=== PATIENT | female | born 1980 | race Caucasian/White ===

== ENCOUNTER 2018-11-17 03:23 | Inpatient (IN) | payer MEDICAID ==
[~2018-11-17] VITALS: Ht 152.4 cm; Wt 68.0 kg
[2018-11-17] MEDS ORDERED: SODIUM CHLORIDE 0.9% 1,000 ML IV ONE (04:04)
[2018-11-17] MEDS ORDERED: FAMOTIDINE 20MG/2ML VIAL IV STA (04:04)
[2018-11-17] MEDS ORDERED: ONDANSETRON 4MG ODT PO STA (04:04)
[2018-11-17] MEDS ORDERED: MAGNESIUM/ALUMINUM HYDROXIDE/SIMETHICONE 30ML UDC PO STA (04:04)
[2018-11-17] MEDS ORDERED: ONDANSETRON HCL 4MG/2ML INJ IV STA (04:04)
[2018-11-17 04:31] LABS: CHLORIDE 109 mEq/L (98-107)
[2018-11-17 04:32] LABS: BASOPHILS % 0.7 % (0.0-2.0); EOSINOPHILS % 2.3 % (0.0-5.0); HEMATOCRIT. 41.8 % (36.0-48.0); HEMOGLOBIN. 14.3 g/dL (12.0-16.0); LYMPHOCYTES % 12.9 % (20.0-50.0); MEAN CORPUSCULAR HEMOGLOBIN 30.3 pg (28.0-32.0); MEAN CORPUSCULAR VOLUME 88.7 fL (81.0-99.0); MEAN PLATELET VOLUME 8.1 fl (7.4-10.4); NEUTROPHILS % 78.1 % (40.0-76.0); PLATELET 334 x1000/uL (130-400); RED BLOOD CELL COUNT 4.71 mill/uL (4.2-5.4); RED CELL DISTRIBUTION WIDTH 12.7 % (11.6-14.6)
[2018-11-17 04:52] LABS: CLARITY URINE CLOUDY (CLEAR); COLOR URINE YELLOW (YELLOW); KETONES URINE NEGATIVE (NEGATIVE); LEUKOCYTE ESTERASE URINE TRACE (NEGATIVE); NITRITE URINE NEGATIVE (NEGATIVE); OCCULT BLOOD URINE 3+ (NEGATIVE); PROTEIN URINE TRACE (NEGATIVE); SPECIFIC GRAVITY URINE 1.034 (1.005-1.030); UROBILINOGEN URINE 0.2 E.U./dL (0.2-1.0)
[2018-11-17] MEDS ORDERED: IOHEXOL-300 100 ML BOTTLE ONE (06:20)
[2018-11-17 08:00] VITALS: BP 109/72
[2018-11-17] MEDS ORDERED: ACETAMINOPHEN 325MG TABLET PO PRN (08:45)
[2018-11-17] MEDS ORDERED: ONDANSETRON HCL 4MG/2ML INJ IV PRN (08:45)
[2018-11-17 09:00] VITALS: BP 115/62
[2018-11-17] MEDS ORDERED: POTASSIUM CHLORIDE INJ 40 MEQ in DEXT 5% WATER 250 ML IV NR (10:00)
[2018-11-17] MEDS ORDERED: MORPHINE SULFATE 2 MG/ML CPJ (NOT FOR IM USE) IV PRN (10:30)
[2018-11-17] MEDS: LEVOFLOXACIN 500MG PREMIX 100 ML IV SCH (11:11)
[2018-11-17] MEDS: FAMOTIDINE 20MG/2ML VIAL IV SCH (11:11)
[2018-11-17 12:00] VITALS: BP 115/62
[2018-11-17 16:00] VITALS: BP 111/73
[2018-11-17 20:00] VITALS: BP 108/61
[2018-11-18] VITALS: BP 103/64
[2018-11-18 04:00] VITALS: BP 102/56
[2018-11-18 06:56] LABS: BASOPHILS % 0.3 % (0.0-2.0); EOSINOPHILS % 3.4 % (0.0-5.0); HEMATOCRIT. 37.8 % (36.0-48.0); HEMOGLOBIN. 13.2 g/dL (12.0-16.0); LYMPHOCYTES % 28.8 % (20.0-50.0); MEAN CORPUSCULAR HEMOGLOBIN 31.2 pg (28.0-32.0); MEAN PLATELET VOLUME 7.7 fl (7.4-10.4); MONOCYTES % 10.6 % (2.0-8.0); NEUTROPHILS % 56.9 % (40.0-76.0); PLATELET 297 x1000/uL (130-400); RED BLOOD CELL COUNT 4.24 mill/uL (4.2-5.4); RED CELL DISTRIBUTION WIDTH 12.9 % (11.6-14.6)
[2018-11-18 07:39] LABS: CHLORIDE 109 mEq/L (98-107)
[2018-11-18 08:00] VITALS: BP 94/55
[2018-11-18] MEDS: LEVOFLOXACIN 500MG PREMIX 100 ML IV SCH (08:55)
[2018-11-18] MEDS: FAMOTIDINE 20MG/2ML VIAL IV SCH (08:55)
[2018-11-18] MEDS ORDERED: KCL 20MEQ/100ML PREMIX 100 ML IV SCH (10:00)
[2018-11-18] MEDS ORDERED: POTASSIUM CHLORIDE 20MEQ/PACKET PO SCH (11:00)
[2018-11-18 12:00] VITALS: BP_SYST 108; BP_SYST 115; BP_DIAS 64; BP_DIAS 72
[2018-11-18 16:00] VITALS: BP_SYST 121; BP_SYST 124; BP_DIAS 66; BP_DIAS 73
[2018-11-18 16:23] VITALS: BP 124/66
== END 2018-11-18 16:50 | disposition home or self-care (01) | DRG 720 ==
LOC: ER 04:55 → 6EST 05:37 → EDBEDREQTM 06:04 → EDBEDREQ 06:04 → ENRESERV 07:25
PROVIDERS: ADMIT Internal Medicine; ATTEND Internal Medicine
DX: A41.9 Sepsis, unspecified organism (principal); E87.8 Other disorders of electrolyte and fluid balance, not elsewhere classified; K76.0 Fatty (change of) liver, not elsewhere classified; E87.6 Hypokalemia; N39.0 Urinary tract infection, site not specified; K52.9 Noninfective gastroenteritis and colitis, unspecified; N83.202 Unspecified ovarian cyst, left side; Z98.891 History of uterine scar from previous surgery
CPT/HCPCS: 36415; 74177; 76700; 78227; 80048; 87015; 87045; 87427; 87449; 87493; 89055; 93970; 96374; 99285; A9537; C1893; J1956; J2270; J2405; J3480; J3490; J7030; J7060; Q0162; Q9967

== ENCOUNTER 2022-11-07 05:11 | Emergency (ER) | payer MEDICAID ==
[~2022-11-07] VITALS: Ht 154.9 cm; Wt 66.0 kg
[2022-11-07 05:22] VITALS: BP 126/81; PULSE 81; RESP 14; TEMP 98.1; O2SAT 98
[2022-11-07 05:46] LABS: BASOPHILS % 0.4 % (0.0-2.0); EOSINOPHILS % 2.7 % (0.0-5.0); HEMATOCRIT. 37.8 % (36.0-48.0); LYMPHOCYTES % 24.6 % (20.0-50.0); MEAN CORPUSCULAR HEMOGLOBIN 29.9 pg (28.0-32.0); MEAN CORPUSCULAR VOLUME 87.1 fL (81.0-99.0); MEAN PLATELET VOLUME 7.7 fl (7.4-10.4); MONOCYTES % 7.7 % (2.0-8.0); NEUTROPHILS % 64.6 % (40.0-76.0); PLATELET 369 x1000/uL (130-400); RED BLOOD CELL COUNT 4.34 mill/uL (4.2-5.4); RED CELL DISTRIBUTION WIDTH 12.9 % (11.6-14.6)
[2022-11-07 05:49] LABS: CLARITY URINE CLEAR (CLEAR); COLOR URINE YELLOW (YELLOW); KETONES URINE NEGATIVE (NEGATIVE); LEUKOCYTE ESTERASE URINE TRACE (NEGATIVE); NITRITE URINE NEGATIVE (NEGATIVE); OCCULT BLOOD URINE 3+ (NEGATIVE); PH URINE 5.5 (4.5-8.0); PROTEIN URINE TRACE (NEGATIVE); SPECIFIC GRAVITY URINE 1.028 (1.005-1.030); UROBILINOGEN URINE 0.2 E.U./dL (0.2-1.0)
[2022-11-07 05:51] LABS: CHLORIDE 109 mEq/L (98-107)
[2022-11-07] MEDS ORDERED: ONDANSETRON 4MG ODT PO STA (06:37)
[2022-11-07] MEDS ORDERED: VISCOUS LIDOCAINE 2% 15 ML UDC PO STA (06:37)
[2022-11-07] MEDS ORDERED: MAGNESIUM/ALUMINUM HYDROXIDE/SIMETHICONE 30ML UDC PO STA (06:37)
[2022-11-07] MEDS ORDERED: DICYCLOMINE 10 MG/5 ML ORAL SYR PO STA (06:37)
[2022-11-07] MEDS ORDERED: DICYCLOMINE HCL 10MG CAPSULE PO NR (06:45)
[2022-11-07] MEDS ORDERED: TOPUD PO (07:32)
== END 2022-11-07 08:20 | disposition home or self-care (01) ==
LOC: ER 05:11
DX: R10.13 Epigastric pain (principal); Z98.890 Other specified postprocedural states
CPT/HCPCS: 36415; 76705; 80053; 81003; 81025; 83690; 85025; 99284; Q0162